=== PATIENT | male | born 1990 | race Caucasian/White ===

== ENCOUNTER 2020-12-24 03:20 | Emergency (ER) | payer MEDICAID ==
[~2020-12-24] VITALS: Ht 182.9 cm; Wt 160.0 kg
[2020-12-24] MEDS ORDERED: SODIUM CHLORIDE 0.9% 1,000 ML IV ONE (04:15)
[2020-12-24 04:36] LABS: BASOPHILS % 0.4 % (0.0-2.0); EOSINOPHILS % 1.9 % (0.0-5.0); HEMOGLOBIN. 15.8 g/dL (14.0-18.0); LYMPHOCYTES % 23.5 % (20.0-50.0); MEAN CORPUSCULAR VOLUME 81.5 fL (80.0-94.0); MEAN PLATELET VOLUME 8.9 fl (7.4-10.4); MONOCYTES % 8.9 % (2.0-8.0); NEUTROPHILS % 65.3 % (40.0-76.0); PLATELET 224 x1000/uL (130-400); RED BLOOD CELL COUNT 5.64 mill/uL (4.7-6.1)
[2020-12-24 04:40] LABS: CHLORIDE 110 mEq/L (98-107)
[2020-12-24 05:34] VITALS: BP 122/76
== END 2020-12-24 05:45 | disposition home or self-care (01) ==
LOC: ER 03:20
DX: I48.20 Chronic atrial fibrillation, unspecified (principal); Z79.01 Long term (current) use of anticoagulants
CPT/HCPCS: 36415; 71045; 80053; 83735; 83880; 84443; 84484; 85025; 96360; 99284; J7030